=== PATIENT | male | born 1955 | race African-American/Black ===

== ENCOUNTER 2017-02-10 12:53 | Emergency (ER) | payer MEDICARE, OTHER ==
[~2017-02-10] VITALS: Ht 182.9 cm; Wt 81.6 kg
[~2017-02-10 12:53] MED LIST: ASPI-495 PO; ATOR10TA PO; CARB-93 PO; CARB-94 PO; CLON0.1T PO; DABI150C PO; DRON400T2 PO; ENTA200T PO; METO-304 PO; SERT25TA5 PO
[2017-02-10 13:28] LABS: BASOPHILS # (AUTO) 0.1 /CMM (0.0-0.2); BASOPHILS % (AUTO) 2.3 % (0.0-2.0); EOSINOPHILS # (AUTO) 0.2 /CMM (0.0-0.7); EOSINOPHILS % (AUTO) 2.4 % (0.0-6.0); HEMATOCRIT 45 % (39-51); HEMOGLOBIN 14.7 g/dL (13.5-17.5); LYMPHOCYTES # (AUTO) 1.3 /CMM (0.8-4.8); LYMPHOCYTES % (AUTO) 20.7 % (20.0-44.0); MEAN CORPUSCULAR HEMOGLOBIN 31 PG (26.0-33.0); MEAN CORPUSCULAR HGB CONC 33 g/dl (31.0-36.0); MEAN CORPUSCULAR VOLUME 95 fL (80-96); MONOCYTES # (AUTO) 0.4 /CMM (0.1-1.30); NEUTROPHILS # (AUTO) 4.3 /CMM (1.8-8.9); NEUTROPHILS % (AUTO) 67.6 % (43.0-81.0); PLATELET COUNT (AUTO) 192 /CMM (150-450); RDW COEFFICIENT OF VARIATION 12.3 (11.5-15.0); RED BLOOD CELL COUNT(AUTO) 4.74 MIL/uL (4.5-6.0); WHITE BLOOD COUNT (AUTO) 6.3 K/uL (4.3-11.0)
[2017-02-10 13:36] LABS: CALCIUM, SERUM 9.2 mg/dL (8.5-10.1); CARBON DIOXIDE 31 mmol/L (21-32); CHLORIDE 105 mmol/L (98-107); CREATININE 0.9 mg/dL (0.6-1.3); GLUCOSE 101 mg/dL (74-106); POTASSIUM 4.8 mmol/L (3.5-5.1); SODIUM SERUM 140 mmol/L (136-145); UREA NITROGEN, BLOOD 18 mg/dL (7-18)
[2017-02-10 13:40] LABS: INR 0.99 (0.87-1.13); PROTHROMBIN TIME 10.3 SECS (9.5-12.7)
[2017-02-10 13:45] LABS: TROPONIN I < 0.017 ng/mL (0.00-0.056)
[2017-02-10 13:50] LABS: B-TYPE NATRIURETIC PEPTIDE 103 PG/ML (0-125)
--- NOTE | 2017-02-10 14:44 | NUR ---
CALLED [facility] FOR TRANSPORT BACK TO [facility], ETA 45 MIN
[2017-02-10 14:52] VITALS: BP 126/81
== END 2017-02-10 16:02 | disposition home or self-care (01) ==
LOC: ER 12:56
DX: R53.1 Weakness (principal); G20 Parkinson's disease; R79.1 Abnormal coagulation profile; I10 Essential (primary) hypertension; Z79.82 Long term (current) use of aspirin; Z91.013 Allergy to seafood
CPT/HCPCS: 36415; 70450-TC; 71010-TC; 80048-TC; 83880; 84484-TC; 85025-TC; 85730-TC; A4606; Z7610

== ENCOUNTER 2017-02-13 15:03 | Inpatient (IN) | payer MEDICARE, OTHER ==
[~2017-02-13] VITALS: Ht 185.4 cm; Wt 84.8 kg
--- NOTE | 2017-02-13 15:05 | NUR ---
bib ra from [facility] for becoming non responsive and syncope while being seated outside on table under sun, no chest pain, verbally responsive, a/o x3, but needs time to speak, patient is placed on monitor, md at bedside upon arrival, no other medical complaints noted will continue to monitor closely.
[2017-02-13 15:44] LABS: BASOPHILS % (AUTO) 0.3 % (0.0-2.0); EOSINOPHILS # (AUTO) 0.2 /CMM (0.0-0.7); EOSINOPHILS % (AUTO) 2.1 % (0.0-6.0); HEMATOCRIT 41 % (39-51); HEMOGLOBIN 13.6 g/dL (13.5-17.5); LYMPHOCYTES # (AUTO) 1.3 /CMM (0.8-4.8); LYMPHOCYTES % (AUTO) 16.6 % (20.0-44.0); MEAN CORPUSCULAR HEMOGLOBIN 31 PG (26.0-33.0); MEAN CORPUSCULAR HGB CONC 33 g/dl (31.0-36.0); MEAN CORPUSCULAR VOLUME 95 fL (80-96); MONOCYTES # (AUTO) 0.5 /CMM (0.1-1.30); MONOCYTES % (AUTO) 6.1 % (2.0-12.0); NEUTROPHILS # (AUTO) 5.7 /CMM (1.8-8.9); NEUTROPHILS % (AUTO) 74.9 % (43.0-81.0); PLATELET COUNT (AUTO) 185 /CMM (150-450); RED BLOOD CELL COUNT(AUTO) 4.35 MIL/uL (4.5-6.0); WHITE BLOOD COUNT (AUTO) 7.6 K/uL (4.3-11.0)
[2017-02-13 15:56] LABS: CALCIUM, SERUM 8.7 mg/dL (8.5-10.1); CARBON DIOXIDE 27 mmol/L (21-32); CHLORIDE 107 mmol/L (98-107); CREATININE 1.1 mg/dL (0.6-1.3); GLUCOSE 95 mg/dL (74-106); POTASSIUM 4.2 mmol/L (3.5-5.1); SODIUM SERUM 140 mmol/L (136-145); UREA NITROGEN, BLOOD 16 mg/dL (7-18)
[2017-02-13 15:58] LABS: PROTHROMBIN TIME 10.7 SECS (9.5-12.7)
[2017-02-13 16:02] LABS: ALANINE AMINOTRANSFERASE 19 U/L (12-78); ALBUMIN 3.6 g/dL (3.4-5.0); ALKALINE PHOSPHATASE 44 U/L (46-116); ASPARTATE AMINOTRANSFERASE 16 U/L (15-37); BILIRUBIN,DIRECT 0.1 mg/dL (0.0-0.2); BILIRUBIN,TOTAL 0.6 mg/dL (0.2-1.0); TOTAL PROTEIN, SERUM 7.5 g/dL (6.4-8.2)
[2017-02-13 16:04] LABS: TROPONIN I < 0.017 ng/mL (0.00-0.056)
[2017-02-13] MEDS ORDERED: SOTA80TA PO (16:20)
[2017-02-13] MEDS ORDERED: ACET-868 PO (16:20)
[2017-02-13] MEDS ORDERED: PANT40TA2 PO (16:20)
--- NOTE | 2017-02-13 16:43 | NUR ---
CALLED [facility] BITUMINOUS DISTRIBUTOR OPERATOR WAS PAGED.
--- NOTE | 2017-02-13 16:45 | NUR ---
312 b 1 niurka
--- NOTE | 2017-02-13 17:10 | NUR ---
tray checkeradmission nurse notes Admitted a 61 years old male patient via gurney accompanied by ER nurse who came in due to syncope. Patient is alert and oriented x3, verbally responsive and able to make needs known. IV intact and patent. Dr. Cooper is aware of the admission, all orders on file. On tele monitor SB heart rate of 59. Kept patient clean and comfortable in bed, call light with in patient reach, will continue to monitor accordingly.
[2017-02-13] MEDS ORDERED: ENOXAPARIN SODIUM 40 MG/0.4 ML DISP.SYRIN SQ SCH (17:30)
[2017-02-13] MEDS ORDERED: MORPHINE SULFATE INJ 2 MG/ML DISP.SYRIN IV PRN (17:30)
[2017-02-13] MEDS ORDERED: MAG HYDROX/AL HYDROX/SIMETH 30 ML UDC PO PRN (17:30)
[2017-02-13] MEDS ORDERED: HYDROCODONE/APAP 5/325MG 1 EACH TABLET PO PRN (17:30)
[2017-02-13] MEDS ORDERED: ONDANSETRON HCL/PF 4 MG/2 ML VIAL IVP PRN (17:30)
[2017-02-13] MEDS ORDERED: Z GUARD REMEDY 2 OZ OINT TP PRN (17:30)
[2017-02-13] MEDS ORDERED: NITROGLYCERIN 0.4 MG/TAB BOTTLE SL PRN (17:30)
[2017-02-13] MEDS ORDERED: ZOLPIDEM TARTRATE 5 MG TABLET PO PRN (17:30)
[2017-02-13] MEDS ORDERED: MAGNESIUM HYDROXIDE 30 ML UDC PO PRN (17:30)
[2017-02-13] MEDS ORDERED: ACETAMINOPHEN 325 MG TABLET PO PRN ×2 (17:30)
[2017-02-13] MEDS: ENTACAPONE 200 MG TABLET PO SCH ×2 (17:51→21:06)
[2017-02-13] MEDS: CARBIDOPA/LEVODOPA 25/250 MG 1 UDTAB PO SCH ×2 (17:51→21:06)
--- NOTE | 2017-02-13 19:21 | NUR ---
telecommunications sales representative closing notes All needs provided, attended, and anticipated, kept patient clean and comfortable in bed, call light with in patient reach, endorsed to next shift to continue care. On tele monitor SR heart rate of 89.
[2017-02-13 20:00] VITALS: BP 137/86
--- NOTE | 2017-02-13 20:00 | NUR ---
RN NOTES RECEIVED PX AWAKE, WITH DELAYED VERBAL RESPONSE BUT ORIENTED X 3, ON ROOM AIR, PIV FLUSHED PATENT AND INTACT; WITH DIAPER ON; HEELS OFFLOADED; PERICARE RENDERED BECAUSE OF WET DIAPER, CHANGED DIAPER, SKIN INTACT; PLACED CONDOM CATHETER, PX AGREED WITH THE INTERVENTION; EDUCATED ON THE PLAN OF CARE. CALL LIGHT WITHIN REACH. DENIED PAIN, SOB, N/V.
[2017-02-13] MEDS: ATORVASTATIN 10 MG TABLET PO SCH (21:06)
[2017-02-13] MEDS: SOTALOL HCL 80 MG TABLET PO SCH (21:09)
--- NOTE | 2017-02-13 22:58 | NUR ---
RN NOTES CALLED [facility] AT [phone], THEY SAID IT IS OKAY TO GET THE PRADAXA FROM THEIR FACILITY TO BE USED HERE AT [facility].
[2017-02-14] VITALS (7 sets, daily range): BP systolic 102–146; BP diastolic 46–91
[2017-02-14] MEDS: ENTACAPONE 200 MG TABLET PO SCH ×5 (06:13→21:05)
[2017-02-14] MEDS: CARBIDOPA/LEVODOPA 25/250 MG 1 UDTAB PO SCH ×4 (06:13→18:13)
--- NOTE | 2017-02-14 06:50 | NUR ---
RN NOTES NO EVENTS OVERNIGHT; PX CONDITION AND NEURO STATUS UNCHANGED; SHE DENIED PAIN, SOB, N/V; EARLY AM CARE RENDERED; CHANGED GOWN AND LINENS, CONDOM CATH REMAINED PATENT AND INTACT, NO SKIN BREAKDOWN; PIV STILL PATENT; WILL ENDORSE TO NEXT RN.
--- NOTE | 2017-02-14 08:00 | NUR ---
LCAC OPERATOR NOTES RECEIVED PATIENT AWAKE ON BED, ALERT AND ORIENTED X 3. ON ROOM AIR, NO ACUTE DISTRESS NOTED. DENIES PAIN. TELEMETRY SINUS MERCEDES 52. IV SITE PATENT AND INTACT. PATIENT HAS CONDOM CATHETER IN PLACE. SKIN INTACT. BED IN LOWEST POSITION, CALL LIGHT WITHIN REACH. WILL CONTINUE TO MONITOR.
[2017-02-14 08:04] LABS: CALCIUM, SERUM 8.9 mg/dL (8.5-10.1); CREATININE 0.8 mg/dL (0.6-1.3); MAGNESIUM 2.1 mg/dL (1.8-2.4); PHOSPHORUS 3.6 mg/dL (2.5-4.9); POTASSIUM 4.2 mmol/L (3.5-5.1)
[2017-02-14 08:07] LABS: THYROID STIMULATING HORMONE 0.91 uIU/mL (0.358-3.74)
[2017-02-14 08:12] LABS: BASOPHILS % (AUTO) 0.5 % (0.0-2.0); EOSINOPHILS # (AUTO) 0.1 /CMM (0.0-0.7); EOSINOPHILS % (AUTO) 2.1 % (0.0-6.0); HEMATOCRIT 44 % (39-51); HEMOGLOBIN 14.8 g/dL (13.5-17.5); LYMPHOCYTES # (AUTO) 1.2 /CMM (0.8-4.8); LYMPHOCYTES % (AUTO) 21.1 % (20.0-44.0); MEAN CORPUSCULAR HEMOGLOBIN 32 PG (26.0-33.0); MEAN CORPUSCULAR HGB CONC 34 g/dl (31.0-36.0); MEAN CORPUSCULAR VOLUME 95 fL (80-96); MONOCYTES # (AUTO) 0.4 /CMM (0.1-1.30); MONOCYTES % (AUTO) 6.9 % (2.0-12.0); NEUTROPHILS % (AUTO) 69.4 % (43.0-81.0); PLATELET COUNT (AUTO) 173 /CMM (150-450); RDW COEFFICIENT OF VARIATION 12.9 (11.5-15.0); RED BLOOD CELL COUNT(AUTO) 4.62 MIL/uL (4.5-6.0); WHITE BLOOD COUNT (AUTO) 5.8 K/uL (4.3-11.0)
[2017-02-14] MEDS: PANTOPRAZOLE 40 MG TABLET.DR PO SCH (08:27)
--- NOTE | 2017-02-14 08:30 | NUR ---
PRASHANT HELD, HEART RATE 50
[2017-02-14] MEDS: SOTALOL HCL 80 MG TABLET PO SCH ×2 (08:41→21:00)
[2017-02-14] MEDS ORDERED: PANTOPRAZOLE 40 MG TABLET.DR PO SCH (09:00)
[2017-02-14] MEDS ORDERED: ASPIRIN EC 81 MG TABLET.DR PO SCH (09:00)
--- NOTE | 2017-02-14 09:05 | NUR ---
PT WENT TO CT VIA WHEELCHAIR.
--- NOTE | 2017-02-14 09:25 | NUR ---
PT CAME BACK TO UNIT FROM CT
[2017-02-14] MEDS ORDERED: Magnesium 1GM/D5W 100ML PREMIX 100 ML IV SCH ×2 (11:30→13:00)
[2017-02-14] MEDS: DABIGATRAN ETEXILATE MESYLATE 150 MG CAPSULE PO SCH ×2 (12:01→18:13)
--- NOTE | 2017-02-14 13:00 | NUR ---
CLARIFIED MAGNESIUM ORDER WITH DR BRADLEY. PER DO NOT ADMINISTER, AND DISCONTINUE MAGNESIUM. MAGNESIUM LEVEL 2.1
--- NOTE | 2017-02-14 18:45 | NUR ---
RN CLOSING NOTE PATIENT RESTING IN BED. NO ACUTE DISTRESS NOTED. BED IN LOWEST POSITION, SIDE RAILS UP X2. CALL LIGHT WITHIN REACH. ENDORSED TO REFRIGERATION SYSTEM INSTALLER RN FOR CONTINUITY OF CARE.
--- NOTE | 2017-02-14 19:30 | NUR ---
MS RN NOTE RECEIVED PATIENT FROM DAY SHIFT, PATIENT IS ALERT AND ORIENTEDX3, NO S/S OF RESPIRATORY DISTRESS OR PAIN PRESENT, RESTING IN BED COMFORTABLY. IV ON RIGHT AC IS PATENT AND INTACT, HL ONLY. SRX2, BED IN LOW POSITION, CALL LIGHT WITHIN REACH, WILL CONTINUE TO MONITOR PATIENT.
[2017-02-14] MEDS: CARBIDOPA/LEV CR 50/200 MG 1 UDTAB.SA PO SCH ×2 (19:58→21:05)
[2017-02-14] MEDS: ATORVASTATIN 10 MG TABLET PO SCH (21:05)
--- NOTE | 2017-02-14 21:10 | NUR ---
MS RN NOTE BETAPACE 80MG PO HELD DUE TO PATIENT'S HR WAS 51.
[2017-02-15] MEDS: CARBIDOPA/LEVODOPA 25/250 MG 1 UDTAB PO SCH ×4 (06:24→17:42)
[2017-02-15] MEDS: ENTACAPONE 200 MG TABLET PO SCH ×5 (06:24→21:25)
--- NOTE | 2017-02-15 06:49 | NUR ---
MS RN NOTE PATIENT IS RESTING IN BED COMFORTABLY, NO ACUTE EVENT NOTED DURING THE NETWORK PROGRAM MANAGER. DONG CATH INTACT. WILL ENDORSE TO DAY SHIFT FOR SHEELA.
--- NOTE | 2017-02-15 07:45 | NUR ---
RN OPENING NOTES RECEIVED PATIENT AWAKE ON BED, ALERT AND ORIENTED X 3. ON ROOM AIR, NO ACUTE DISTRESS NOTED. DENIES PAIN. IV SITE PATENT AND INTACT. SKIN INTACT. BED IN LOWEST POSITION, CALL LIGHT WITHIN REACH. WILL CONTINUE TO MONITOR.
[2017-02-15 08:00] VITALS: BP 157/92
[2017-02-15] MEDS: SOTALOL HCL 80 MG TABLET PO SCH ×2 (09:00→21:25)
[2017-02-15] MEDS: PANTOPRAZOLE 40 MG TABLET.DR PO SCH (09:17)
[2017-02-15] MEDS: DABIGATRAN ETEXILATE MESYLATE 150 MG CAPSULE PO SCH ×2 (09:35→17:43)
--- NOTE | 2017-02-15 09:35 | NUR ---
SORINE(Sotalol HCl) HELD, HEART RATE 52.
[2017-02-15 16:00] VITALS: BP 117/73
--- NOTE | 2017-02-15 19:00 | NUR ---
RN CLOSING NOTES PATIENT RESTING IN BED. NO ACUTE DISTRESS NOTED. BED IN LOWEST POSITION, SIDE RAILS UP X2. CALL LIGHT WITHIN REACH. ENDORSED TO HIGH SCHOOL MATHEMATICS TEACHER RN FOR CONTINUITY OF CARE.
[2017-02-15 20:00] VITALS: BP 144/83
[2017-02-15 20:41] LABS: APPEARANCE,URINE CLEAR (CLEAR); BILIRUBIN,URINE NEGATIVE (NEGATIVE); BLOOD, URINE NEGATIVE Ery/uL (NEGATIVE); COLOR,URINE YELLOW (YELLOW); KETONES,URINE NEGATIVE (NEGATIVE); LEUKOCYTE ESTERASE ,URINE NEGATIVE (NEGATIVE); NITRITE, URINE NEGATIVE (NEGATIVE); PH,URINE 6.5 (5.0-8.0); PROTEIN,URINE NEGATIVE (NEGATIVE); UGLUCOSE NEGATIVE (NEGATIVE); UROBILINOGEN,URINE 0.2 EU/dL (0.2)
[2017-02-15] MEDS: ATORVASTATIN 10 MG TABLET PO SCH (21:25)
[2017-02-15] MEDS: CARBIDOPA/LEV CR 50/200 MG 1 UDTAB.SA PO SCH (21:25)
--- NOTE | 2017-02-16 06:35 | NUR ---
MS RN NOTES AWAKE & RESPONSIVE. NOT IN ANY DISTRESS. NO SOB NOTED. DENIES ANY PAIN OR DISCOMFORT AT THIS TIME. WITH IV-HL PATENT & INTACT. AM CARE DONE. MONITORED ACCORDINGLY. CALL LIGHT WITHIN REACH. BED IN LOWEST POSITION. SR UP X 3 FOR SAFETY. WILL ENDORSE TO NEXT SHIFT.
--- NOTE | 2017-02-16 07:10 | NUR ---
MS RN OPENING NOTES RECEIVED PT. FROM NIGHTSHIFT NURSE IN STABLE CONDITION. PT. IS AWAKE AND LYING COMFORTABLY IN BED. NO SOB OR SIGNS OF DISTRESS NOTED. DENIES ANY PAIN AT THIS TIME OR DIZZINESS. CONDOM CATHETER IN PLACE AND DRAINING CLEAR NIURKA URINE. IV PRESENT ON RIGHT AC 18 G HL. IV IS PATENT TO NS FLUSH AND INTACT. NO REDNESS OR SIGNS OF INFILTRATION NOTED. BED IN LOW LOCKED POSITION, SIDE RAILS UP X3, CALL LIGHT WITHIN REACH. WILL CONTINUE TO MONITOR.
[2017-02-16 08:00] VITALS: BP 151/84
[2017-02-16] MEDS: CARBIDOPA/LEVODOPA 25/250 MG 1 UDTAB PO SCH ×2 (08:15→11:15)
[2017-02-16] MEDS: PANTOPRAZOLE 40 MG TABLET.DR PO SCH (08:15)
[2017-02-16 08:16] VITALS: BP 151/84
[2017-02-16] MEDS: SOTALOL HCL 80 MG TABLET PO SCH (08:16)
[2017-02-16] MEDS: ENTACAPONE 200 MG TABLET PO SCH ×2 (08:16→11:15)
[2017-02-16] MEDS: DABIGATRAN ETEXILATE MESYLATE 150 MG CAPSULE PO SCH (08:17)
--- NOTE | 2017-02-16 14:45 | NUR ---
MS RN NOTES PT. WAS DISCHARGED FROM UNIT IN STABLE CONDITION. LEFT VIA AMBULANCE TRANSPORT. REPORT WAS GIVEN TO MARI JACOBSON RN FROM [facility]. PT. WAS SAFELY TRANSFERRED FROM [facility] TO [facility] BY AMBULANCE STAFF. ALL NEEDS MET DURING SHIFT AND ORDERS CARRIED OUT ACCORDINGLY.
== END 2017-02-16 14:50 | DRG 74 ==
LOC: ER 15:05 → TELE 16:52 → MED 02-14 21:37
DX: G90.8 Other disorders of autonomic nervous system (principal); I48.92 Unspecified atrial flutter; D68.59 Other primary thrombophilia; G90.3 Multi-system degeneration of the autonomic nervous system; G20 Parkinson's disease; I48.91 Unspecified atrial fibrillation; K21.9 Gastro-esophageal reflux disease without esophagitis; E78.5 Hyperlipidemia, unspecified; Z79.899 Other long term (current) drug therapy; R00.1 Bradycardia, unspecified; I11.0 Hypertensive heart disease with heart failure; I50.9 Heart failure, unspecified; Z79.01 Long term (current) use of anticoagulants; G90.1 Familial dysautonomia [Riley-Day]; M94.0 Chondrocostal junction syndrome [Tietze]
CPT/HCPCS: 36415; 70450-TC; 71010-TC; 80048-TC; 80061-TC; 80076-TC; 80305; 81000-TC; 83735-TC; 83880; 84100-TC; 84443-TC; 84484-TC; 85025-TC; 85730-TC; 87081-TC; 93307-TC; A4349; A4606; Z7610

== ENCOUNTER 2017-10-24 10:50 | Inpatient (IN) | payer MEDICARE, OTHER ==
[~2017-10-24] VITALS: Ht 188 cm; Wt 84.4 kg
[~2017-10-24 10:50] MED LIST changes: +ACET-868 PO; -ASPI-495 PO; -CARB-93 PO; -DRON400T2 PO; -METO-304 PO; +PANT40TA2 PO; -SERT25TA5 PO; +SOTA80TA PO
--- NOTE | 2017-10-24 10:55 | NUR ---
[id number] FROM [facility] FOR S/P WITNESSED SZ 15 MIN SLOTTER OPERATOR. BS 92 SLOTTER OPERATOR. A/OX 2. BREATHING EVEN AND UNLABORED. NO SOB. VITALS STABLE. SAFETY AND COMFORT MEASURES IN PLACE. AWAITING MD ORDERS.
[2017-10-24] MEDS: LEVETIRACETAM (500MG) 1,000 MG in IV NS 0.9% 100 ML IV SCH ×2 (11:16→23:42)
--- NOTE | 2017-10-24 11:17 | NUR ---
PATIENT TAKEN TO CT VIA STRETCHER.
--- NOTE | 2017-10-24 11:31 | NUR ---
PATIENT RETURNED FROM CT IN STABLE CONDITION.
--- NOTE | 2017-10-24 11:34 | NUR ---
VOLUNTEER SERVICES COORDINATOR AT BEDSIDE FOR BLOOD DRAW.
[2017-10-24 11:40] LABS: BASOPHILS # (AUTO) 0.3 /CMM (0.0-0.2); BASOPHILS % (AUTO) 2.7 % (0.0-2.0); EOSINOPHILS % (AUTO) 0.4 % (0.0-6.0); HEMATOCRIT 46 % (39-51); HEMOGLOBIN 15.6 g/dL (13.5-17.5); LYMPHOCYTES # (AUTO) 1.1 /CMM (0.8-4.8); LYMPHOCYTES % (AUTO) 10.8 % (20.0-44.0); MEAN CORPUSCULAR HEMOGLOBIN 31 PG (26.0-33.0); MEAN CORPUSCULAR HGB CONC 34 g/dl (31.0-36.0); MEAN CORPUSCULAR VOLUME 93 fL (80-96); MONOCYTES # (AUTO) 0.5 /CMM (0.1-1.30); NEUTROPHILS # (AUTO) 7.9 /CMM (1.8-8.9); NEUTROPHILS % (AUTO) 81.1 % (43.0-81.0); PLATELET COUNT (AUTO) 207 /CMM (150-450); RDW COEFFICIENT OF VARIATION 12.6 (11.5-15.0); RED BLOOD CELL COUNT(AUTO) 5.01 MIL/uL (4.5-6.0); WHITE BLOOD COUNT (AUTO) 9.8 K/uL (4.3-11.0)
[2017-10-24 11:51] LABS: CALCIUM, SERUM 9.1 mg/dL (8.5-10.1); CREATININE 1.2 mg/dL (0.6-1.3)
[2017-10-24 11:54] LABS: INR 1.06 (0.85-1.15)
[2017-10-24 12:05] LABS: ALBUMIN 3.7 g/dL (3.4-5.0); BILIRUBIN,TOTAL 0.6 mg/dL (0.2-1.0); TOTAL PROTEIN, SERUM 8.3 g/dL (6.4-8.2)
[2017-10-24] MEDS ORDERED: LOPE2TAB25 PO (12:43)
--- NOTE | 2017-10-24 13:11 | NUR ---
PT UNABLE TO PROVIDE URINE SAMPLE AT THIS MOMENT.
--- NOTE | 2017-10-24 13:14 | NUR ---
REPORT GIVEN TO HERNAN MILLAN FOR SHEELA UPON ADMISSION.
[2017-10-24 15:00] VITALS: BP 118/65
--- NOTE | 2017-10-24 15:00 | NUR ---
television maintenance workerjourneyman painter notes Admitted a 62 years [facility] who came in due to Seizure disorder accompanied by ER nurse via faviorsondra. Patient is alert and oriented x 3, verbally responsive and able to make needs known. IV intact and patent. No complaint of pain or discomfort noted, nor chest pain. Skin assessment done and skin intact. On room air and tolerated well. Pneumonia and flu vaccine offered and patient refused. Explained the risk and benefits x 3 and still refused. Per patient it will not work. Informed Jade Paul TECHNICAL ASSOC regarding admission orders and diet, and ordered. Vital signs checked and recorded. Kept patient clean and comfortable in bed, call light with in patient reach, will continue to monitor accordingly. On tele monitor SR heart rate of 66.
[2017-10-24] MEDS ORDERED: ONDANSETRON HCL/PF 4 MG/2 ML VIAL IVP PRN (15:30)
[2017-10-24] MEDS ORDERED: Z GUARD REMEDY 2 OZ OINT TP PRN (15:30)
[2017-10-24] MEDS ORDERED: ACETAMINOPHEN 325 MG TABLET PO PRN (15:30)
[2017-10-24] MEDS ORDERED: CLONIDINE HCL 0.1 MG TABLET PO PRN (15:30)
[2017-10-24 16:00] VITALS: BP 118/75
[2017-10-24] MEDS: CARBIDOPA/LEVODOPA 25/250 MG 1 UDTAB PO SCH ×2 (17:07→20:34)
[2017-10-24] MEDS: ENTACAPONE 200 MG TABLET PO SCH ×2 (18:45→20:34)
[2017-10-24] MEDS: DABIGATRAN ETEXILATE MESYLATE 150 MG CAPSULE PO SCH (18:45)
--- NOTE | 2017-10-24 19:15 | NUR ---
DIRECTOR OF FEDERAL SALES OPENING NOTES PT RESTING IN BED. NO COMPLAINTS OF PAIN, DISCOMFORT OR SOB AT THIS TIME. PT TELE MONITORED SINUS RHYTHM 70. PT HAS A LEFT FOREARM #20 IV, INTACT AND PATENT. URINAL AT PT BEDSIDE. SAFETY PRECAUTIONS IN PLACE, BED IN LOW, LOCKED, POSITION, X2SIDE RAILS UP, AND CALL LIGHT WITHIN REACH. WILL CONTINUE TO MONITOR.
--- NOTE | 2017-10-24 19:28 | NUR ---
teleservices representative closing notes All needs provided, attended, and anticipated, kept patient clean and comfortable in bed, call light with in patient reach, endorsed to next shift RN to continue care.
[2017-10-24 20:00] VITALS: BP 133/87
[2017-10-24] MEDS ORDERED: LEVETIRACETAM (500MG) 500 MG/5 ML VIAL IV ONE (22:49)
[2017-10-24] MEDS: ATORVASTATIN 10 MG TABLET PO SCH (23:41)
[2017-10-25] VITALS: BP 118/62
[2017-10-25 04:00] VITALS: BP 96/58
--- NOTE | 2017-10-25 06:56 | NUR ---
PRINTING SALES REPRESENTATIVE CLOSING NOTES PT RESTING IN BED. NO COMPLAINTS OF PAIN, DISCOMFORT OR SOB AT THIS TIME. PT TELE MONITORED SINUS MERCEDES RATE 55. PT HAS A LEFT FOREARM #20 IV, INTACT AND PATENT. URINAL AT PT BEDSIDE. SAFETY PRECAUTIONS IN PLACE, BED IN LOW, LOCKED, POSITION, X2 SIDE RAILS UP, AND CALL LIGHT WITHIN REACH. WILL ENDORSE TO DAY SHIFT NURSE FOR CONTINUITY OF CARE.
[2017-10-25] MEDS: CARBIDOPA/LEVODOPA 25/250 MG 1 UDTAB PO SCH ×5 (07:00→21:14)
[2017-10-25] MEDS: ENTACAPONE 200 MG TABLET PO SCH ×5 (07:00→21:14)
[2017-10-25 07:04] LABS: BASOPHILS % (AUTO) 0.2 % (0.0-2.0); EOSINOPHILS # (AUTO) 0.1 /CMM (0.0-0.7); EOSINOPHILS % (AUTO) 1.3 % (0.0-6.0); HEMATOCRIT 46 % (39-51); HEMOGLOBIN 15.3 g/dL (13.5-17.5); LYMPHOCYTES # (AUTO) 1.2 /CMM (0.8-4.8); LYMPHOCYTES % (AUTO) 19.5 % (20.0-44.0); MEAN CORPUSCULAR HEMOGLOBIN 32 PG (26.0-33.0); MEAN CORPUSCULAR HGB CONC 34 g/dl (31.0-36.0); MEAN CORPUSCULAR VOLUME 94 fL (80-96); MONOCYTES # (AUTO) 0.5 /CMM (0.1-1.30); MONOCYTES % (AUTO) 7.9 % (2.0-12.0); NEUTROPHILS # (AUTO) 4.5 /CMM (1.8-8.9); NEUTROPHILS % (AUTO) 71.1 % (43.0-81.0); PLATELET COUNT (AUTO) 179 /CMM (150-450); RDW COEFFICIENT OF VARIATION 13.3 (11.5-15.0); RED BLOOD CELL COUNT(AUTO) 4.87 MIL/uL (4.5-6.0); WHITE BLOOD COUNT (AUTO) 6.4 K/uL (4.3-11.0)
[2017-10-25 07:36] LABS: ALBUMIN 3.5 g/dL (3.4-5.0); BILIRUBIN,TOTAL 0.5 mg/dL (0.2-1.0); CALCIUM, SERUM 8.9 mg/dL (8.5-10.1); CREATININE 0.9 mg/dL (0.6-1.3); MAGNESIUM 2.1 mg/dL (1.8-2.4); PHOSPHORUS 3.7 mg/dL (2.5-4.9); POTASSIUM 4.1 mmol/L (3.5-5.1); TOTAL PROTEIN, SERUM 7.9 g/dL (6.4-8.2)
[2017-10-25 08:00] VITALS: BP 136/78
--- NOTE | 2017-10-25 08:30 | NUR ---
ms rn received on bed, awake,alert, oriented x3,not in any form of distress, respirations even and unlabored,no sob noted, lungs are diminished,abdomen soft,positive bowel sounds, denies pain at this time.
[2017-10-25] MEDS: DABIGATRAN ETEXILATE MESYLATE 150 MG CAPSULE PO SCH ×2 (09:00→17:40)
--- NOTE | 2017-10-25 09:50 | NUR ---
ms rn held meds at this time, patient is so sleepy.
--- NOTE | 2017-10-25 11:00 | NUR ---
ms rn scheduled meds given, tolerated well. spoke to pharmacyst, leppra iv is not available.
[2017-10-25] MEDS: PANTOPRAZOLE 40 MG TABLET.DR PO SCH (11:35)
[2017-10-25 12:00] VITALS: BP 127/67
--- NOTE | 2017-10-25 13:00 | NUR ---
ms rn followed up leppra iv, still not in in the floor at this time.
[2017-10-25 16:00] VITALS: BP 133/82
--- NOTE | 2017-10-25 16:00 | NUR ---
ms cassie perez was received,but was changed time to 11 pm mckayla.
--- NOTE | 2017-10-25 18:44 | NUR ---
ms rn on bed, no change of condition ,all needs attended.
--- NOTE | 2017-10-25 19:30 | NUR ---
CONCRETE BATCHER NOTES PATIENT RECEIVED AWAKE, ALERT AND ORIENTED. ABLE TO MAKE NEEDS KNOWN AND FOLLOW SIMPLE INSTRUCTIONS. PATIENT BREATHING EVEN AND UNLABORED. ON ROOM AIR, NO SOB OR ACUTE DISTRESS NOTED AT THIS TIME. PATIENT DENIES ANY PAIN OR DISCOMFORT. ON TELE MONITOR WITH NORMAL SINUS RHYTHM. NO CHANGES IN LOC NOTED. NO EPISODE OF SEIZURE AT THIS TIME. WILL CONTINUE TO MONITOR. BED LOCKED AND IN LOW POSITION, BILATERAL UPPER SIDE RAILS UP AND LOCKED. CALL LIGHT WITHIN EASY REACH
[2017-10-25 20:00] VITALS: BP 99/61
[2017-10-25] MEDS: ATORVASTATIN 10 MG TABLET PO SCH (21:14)
[2017-10-25] MEDS ORDERED: LEVETIRACETAM (500MG) 500 MG/5 ML VIAL IV ONE (22:53)
--- NOTE | 2017-10-25 23:00 | NUR ---
URGENT CARE PHYSICIAN ASSISTANT NOTES KEPPRA NOT AVAILABLE IN FLOOR. INFORMED ACCOUNTING MACHINE SERVICER AND WAS PROVIDED WITH MEDICATION. ADMINISTERED KEPPRA ORDERED. WILL CONTINUE TO MONITOR
[2017-10-25] MEDS: LEVETIRACETAM (500MG) 500 MG in IV NS 0.9% 100 ML IV SCH (23:05)
[2017-10-26 04:00] VITALS: BP 95/55
[2017-10-26] MEDS: ENTACAPONE 200 MG TABLET PO SCH ×4 (06:14→17:16)
[2017-10-26] MEDS: CARBIDOPA/LEVODOPA 25/250 MG 1 UDTAB PO SCH ×4 (06:14→17:16)
[2017-10-26 06:28] LABS: APPEARANCE,URINE CLEAR (CLEAR); BILIRUBIN,URINE NEGATIVE (NEGATIVE); BLOOD, URINE NEGATIVE Ery/uL (NEGATIVE); COLOR,URINE DARK YELLO (YELLOW); KETONES,URINE TRACE (NEGATIVE); LEUKOCYTE ESTERASE ,URINE NEGATIVE (NEGATIVE); NITRITE, URINE NEGATIVE (NEGATIVE); PH,URINE 5.5 (5.0-8.0); PROTEIN,URINE NEGATIVE (NEGATIVE); UGLUCOSE NEGATIVE (NEGATIVE); UROBILINOGEN,URINE 0.2 EU/dL (0.2)
[2017-10-26 06:41] LABS: BACTERIA,URINE None seen /HPF (None Seen); MUCUS,URINE Few /LPF (None Seen); RBC,URINE 0-2 /HPF (0-2); SQUAMOUS EPITHELIAL CELL,UR 0-2 /HPF (None Seen); URINE AMORPHOUS URATE Few /HPF (None Seen); WBC,URINE 0-2 /HPF (0-3)
--- NOTE | 2017-10-26 06:53 | NUR ---
CONTROL EQUIPMENT ELECTRICIAN NOTES PATIENT RESTING INSIDE ROOM, AWAKE, ALERT AND ORIENTED. ABLE TO MAKE NEEDS KNOWN AND FOLLOW SIMPLE INSTRUCTIONS. PATIENT BREATHING EVEN AND UNLABORED. NO SOB OR ACUTE DISTRESS NOTED AT THIS TIME. DENIES ANY PAIN OR DISCOMFORT AT THIS TIME. PATIENT CALM AND RELAXED. NO CHANGES IN LOC NOTED PATIENT REMAINS AFEBRILE, SKIN DRY AND WARM TO TOUCH. IV SITE INTACT AND PATENT, NO BLEEDING OR SWELLING NOTED. CONTINUE ON TELE MONITOR. NO CHANGES IN MENTAL STATUS. URINE SPECIMEN COLLECTED THIS AM. LAB MADE AWARE. AWAITING FOR RESULTS. ALL NURSING NEEDS ATTENDED AND MET. ALL DUE MEDICATIONS GIVEN AND TOLERATED WELL. PROVIDED WITH CALM, SAFE, HAZARD-FREE ENVIRONMENT. CALL LIGHT PLACED WITHIN EASY REACH. WILL ENDORSE TO INCOMING SHIFT.
--- NOTE | 2017-10-26 07:05 | NUR ---
CARDIAC CATH LAB RADIOLOGY TECHNOLOGIST NOTES RECEIVED PATIENT IN BED ALERT ORIENTED x4. NO SOB NOTED. NO ACUTE DISTRESS NOTED. BREATHING UNLABORED. IV ACCESS PATENT AND INTACT. NO REDNESS OR SWELLING NOTED. SAFETY MEASURES IN PLACE. CALL LIGHT PLACED WITHIN REACH. WILL CONTINUE TO MONITOR ACCORDINGLY.
[2017-10-26 08:00] VITALS: BP 146/90
[2017-10-26] MEDS: PANTOPRAZOLE 40 MG TABLET.DR PO SCH (08:59)
[2017-10-26] MEDS: DABIGATRAN ETEXILATE MESYLATE 150 MG CAPSULE PO SCH ×2 (09:00→17:17)
[2017-10-26] MEDS: LEVETIRACETAM (500MG) 500 MG in IV NS 0.9% 100 ML IV SCH (11:13)
[2017-10-26] MEDS ORDERED: LEVE500T9 PO ×3 (14:02→14:38)
[2017-10-26 16:00] VITALS: BP 113/53
--- NOTE | 2017-10-26 17:30 | NUR ---
MS RN NOTES PATIENT DISCHARGED WITH STABLE VITAL SIGNS. NO SOB NOTED. NO ACUTE DISTRESS NOTED. BREATHING UNLABORED. IV ACCESS REMOVED, NO S/SX OF BLEEDING OR SWELLING NOTED. DISCHARGED INSTRUCTIONS GIVEN TO THE PATIENT, VERBALIZED UNDERSTANDING. REPORT GIVEN TO THANG MILLAN OF [facility]. DISCHARGE PAPERS HANDED OVER TO THE EMT PERSONNEL. PATIENT PICKED UP VIA GURNEY ACCOMPANIED BY 2 EMT PERSONNEL IN STABLE CONDITION. ALL BELONGINGS ACCOUNTED FOR. [employer] SALAS NOTIFIED OF TRANSFER.
== END 2017-10-26 17:50 | DRG 101 ==
LOC: ER 10:53 → TELE 13:30 → MED 15:24 → TELE 15:26 → MED 10-26 08:28
PROVIDERS: ADMIT Nurse Practitioner Acute Care; ATTEND Nurse Practitioner Acute Care
DX: R56.9 Unspecified convulsions (principal); D68.59 Other primary thrombophilia; G20 Parkinson's disease; I50.32 Chronic diastolic (congestive) heart failure; E78.00 Pure hypercholesterolemia, unspecified; E78.5 Hyperlipidemia, unspecified; G89.29 Other chronic pain; I11.0 Hypertensive heart disease with heart failure; I48.91 Unspecified atrial fibrillation; K21.9 Gastro-esophageal reflux disease without esophagitis; M54.5 Low back pain; Z79.01 Long term (current) use of anticoagulants; Z86.73 Personal history of transient ischemic attack (TIA), and cerebral infarction without residual deficits; Z79.899 Other long term (current) drug therapy; Z88.7 Allergy status to serum and vaccine; Z91.010 Allergy to peanuts; Z91.013 Allergy to seafood
CPT/HCPCS: 36415; 70450-TC; 80053-TC; 80061-TC; 80305; 81000-TC; 83735-TC; 84100-TC; 84484-TC; 85025-TC; 85730-TC; 87081-TC; A4606; J1953; J7030; J7050; Z7610